=== PATIENT | female | born 1950 | race Caucasian/White ===

== ENCOUNTER 2017-10-01 14:25 | Emergency (ER) | payer OTHER, MEDICARE ==
[~2017-10-01] VITALS: Ht 172.7 cm; Wt 54.9 kg
[~2017-10-01 14:25] MED LIST: ATENOLOL25 M1 PO; AUGMENTIN 875-1 EACH PO; FLONASE ALLERG9.9 ML IN; LISINOPRIL10 M1 PO; PREDNISOLO15 MG/5 M4 PO
[2017-10-01 18:31] LABS: ABSOLUTE BASOPHIL COUNT 0 /CUMM (0.0-0.2); ABSOLUTE EOSINOPHIL COUNT 0 /CUMM (0.0-0.7); ABSOLUTE GRANULOCYTE CT 8.1 /CUMM (1.4-6.5); ABSOLUTE LYMPH COUNT 0.5 /CUMM (1.2-3.4); ABSOLUTE MONOCYTE COUNT 0.1 /CUMM (0.10-0.60); BASOPHIL % 0.1 % (0.0-2.0); EOSINOPHIL % 0.1 % (0-5); MEAN CORPUSCULAR HGB 30.5 PG (27.0-31.0); MEAN CORPUSCULAR HGB CONC 32.9 G/DL (33.0-37.0); MEAN CORPUSCULAR VOLUME 92.7 FL (81.0-99.0); MEAN PLATELET VOLUME 6.8 FL (7.4-10.4); PLATELET COUNT 390 /CUMM (130-400); RBC DISTRIBUTION WIDTH 13.7 % (11.5-14.5); WHITE BLOOD CELL COUNT 8.7 /CUMM (4.8-10.8)
[2017-10-01 18:47] LABS: GRANULOCYTE % 93.2 % (42.2-75.2)
--- NOTE | 2017-10-01 18:55 | CT SCAN REPORT ---
EXAMINATION: CT MAXILLOFACIAL WITH CONTRAST CLINICAL INFORMATION: Sinusitis. Periorbital cellulitis. Evaluate for abscess. COMPARISON: None TECHNIQUE: Multidetector helical imaging was performed in the axial plane with generation of coronal and sagittal reformatted images. The examination was performed after the administration of 95 mL of Optiray 320 intravenous contrast DLP: 810 mGy-cm FINDINGS: There is mild circumferential mucosal thickening lining the dey of the right maxillary antrum. Mild mucosal thickening noted within the ethmoid sinus cavities as well. The remaining paranasal sinuses are fairly well aerated. There is a rightward nasal septal deviation. Mucosal thickening opacifies the right maxillary sinus ostium. No air-fluid levels are seen. No periapical disease is seen in the maxillary dentition. No bony erosive changes are visible. The globes are symmetric. The extraocular muscles and optic nerve sheath complexes are normal. There is no proptosis. The lacrimal glands appear normal. There is infraorbital soft tissue swelling bilaterally, more so on the right side. No drainable fluid collections are seen. The remaining soft tissues of the imaged neck appear normal. The airways maintained. No retropharyngeal fluid collection is seen. There are moderate degenerative changes in the left TMJ. No bulky cervical adenopathy is seen. The imaged portions of the brain demonstrate no acute abnormality. There is extensive multilevel cervical spondylosis with disc space narrowing and endplate osteophyte formation. Facet arthropathy also partially visualized. A mild anterolisthesis is visible at C3-C4. There are no compression fractures. There is a reversal of the normal cervical lordosis. IMPRESSION: Mild mucosal thickening in the paranasal sinuses as described. No air-fluid levels. No drainable fluid collections. No areas of bony erosion. Mild infraorbital soft tissue swelling, right greater than left side. No post septal soft tissue inflammatory process. Moderate cervical spondylosis and reversal of the normal cervical lordosis. Mild anterior subluxation at C3-C4. Significant degenerative changes of the left TMJ.
--- NOTE | 2017-10-01 18:58 | ED GENERAL ADULT ---
History of Present Illness General Chief Complaint: General Adult Stated Complaint: SENT BY [facility] FOR POSSIBLE ADMISSION Source: patient, old records Exam Limitations: no limitations Vital Signs & Intake/Output Vital Signs & Intake/Output Vital Signs Date Time Temp Pulse Resp B/P B/P Pulse O2 O2 Flow FiO2 Mean Ox Delivery Rate 10/01 2008 98.2 72 18 161/79 99 Room Air 10/01 1809 99 Room Air 10/01 1432 98.6 110 18 151/85 98 Room Air ED Intake and Output 10/02 0000 10/01 1200 Intake Total 0 Output Total Balance 0 Intake, Oral 0 Patient 121 lb Weight Weight Reported by Patient Measurement Method Allergies Uncoded Allergies: Allergy Other N Food Allergies N Med Allergies CODEINE Reconcile Medications Amoxicillin/Potassium Clav (Augmentin 875-125 Tablet) 875 MG-125 MG TABLET 1 TAB PO BID sinsuitis Atenolol 25 MG TABLET 1 TAB PO DAILY HEART HEALTH (Reported) Fluticasone Propionate (Flonase Allergy Relief) 50 MCG/ACTUATION SPRAY.SUSP 1 INH IN BID ALLERGIC RHINITIS Lisinopril 10 MG TABLET 1 TAB PO DAILY HEART HEALTH (Reported) Prednisolone 15 MG/5 ML SOLUTION 10 ML PO QDAY SINUS INFLAMATION Prednisone (Deltasone) 20 MG TABLET 2 TAB PO ONCE DAILY RASH Triage Note: 67 YO FEMALE TO TRIAGE C/O RASH AND PUFFY UNDERNEATH BILATERAL EYES. STATES SHE WAS HERE OVER THE WEEKENED AND AND TOLD SHE HAD A SINUS INFECTIONS. STATES "MY DAUGHTER SHOWED DR PEREIRA A PICTURE TODAY AND AHE WANTED ME TO COME IN FOR ADMISSION FOR A SKIN INFECTION" Triage Nurses Notes Reviewed? yes Onset: Abrupt Duration: day(s): (3-4), constant, continues in ED Timing: single episode today Injury Environment: home Severity: moderate, severe Severity Numbers: 5 No Modifying Factors: none LMP (ages 10-50): post menopausal : No Patient currently breastfeeds: No HPI: 67 female past medical history of hypertension presents for reevaluation of facial rash. Patient was seen here 2 days ago with bilateral facial redness swelling and fever. She was started on antibiotics and steroids and instructed to follow-up with his primary care doctor. Patient states that she showed a picture of her face her primary care doctor and she was told to come in for admission for possible skin infection. Patient has been taking antibiotics as directed. She feels like the rash is less swollen but it is still present. There is been no more fevers. She feels much less congested. No chest pain shortness of breath sweats chills. No other rashes no joint pains (Zenon Small) Past History Travel History Traveled to [place] past 21 day No Medical History Any Pertinent Medical History? see below for history EENT: sinusitis Cardiovascular: IRREGULAR HEART BEAT Surgical History Surgical History: non-contributory Psychosocial History What is your primary language Comoran Tobacco Use: Never used Family History Hx Contributory? No (Zenon Small) Review of Systems Review of Systems Constitutional: Reports: no symptoms. EENTM: Reports: no symptoms. Respiratory: Reports: no symptoms. Cardiovascular: Reports: no symptoms. GI: Reports: no symptoms. Genitourinary: Reports: no symptoms. Musculoskeletal: Reports: no symptoms. Skin: Reports: see HPI, lesions, rash. Neurological/Psychological: Reports: no symptoms. Hematologic/Endocrine: Reports: no symptoms. Immunologic/Allergic: Reports: no symptoms. All Other Systems: Reviewed and Negative (Zenon Small) Physical Exam Physical Exam General Appearance: well developed/nourished, no apparent distress, alert, awake Head: atraumatic, normal appearance, erythematous rash remains in the malar distribution slightly worse on the right. No more induration no focal fluctuant areas. Eyes: Bilateral: normal appearance, PERRL, EOMI. Ears, Nose, Throat: normal pharynx, hearing grossly normal, the mucosa of the right naris is erythematous and swollen. No purulent discharge Neck: normal inspection, supple, full range of motion Respiratory: normal breath sounds, chest non-tender, no respiratory distress, lungs clear Cardiovascular: regular rate/rhythm, normal peripheral pulses Peripheral Pulses: 2+ radial (R), 2+ radial (L) Gastrointestinal: soft, non-tender Back: normal inspection, normal range of motion Extremities: normal inspection, normal range of motion, no edema Neurologic/Psych: no motor/sensory deficits, awake, alert, oriented x 3, normal gait, normal mood/affect Skin: intact, normal color, warm/dry Lymphatic: no anterior cervical eddie Core Measures ACS in differential dx? No CVA/TIA Diagnosis: No Sepsis Present: No Sepsis Focused Exam Completed? No (Zenon Small) Progress Differential Diagnoses I considered the following diagnoses in my evaluation of the patient: [ Cellulitis, lupus, sinusitis, allergic reaction, contact dermatitis] Plan of Care: Orders Procedure Date/time Status BLOOD CULTURE 10/01 1737 Active URINALYSIS 10/01 1737 Complete TROPONIN LEVEL 10/01 1737 Complete LACTIC ACID 10/01 1737 Complete COMPREHENSIVE METABOLIC PANEL 10/01 1737 Complete CBC WITHOUT DIFFERENTIAL 10/01 1737 Complete EKG 10/01 1737 Active Laboratory Tests 10/01/172037: Lactic Acid Cancelled 10/01/171809: Anion Gap 14, Estimated GFR > 60, BUN/Creatinine Ratio 18.3, Glucose 119 H, Lactic Acid 1.3, Calcium 9.4, Total Bilirubin 0.6, AST 33, ALT 30, Alkaline Phosphatase 79, Troponin I < 0.01, Total Protein 7.4, Albumin 4.2, Globulin 3.2, Albumin/Globulin Ratio 1.3, CBC w Diff NO MAN DIFF REQ, RBC 4.20, MCV 92.7, MCH 30.5, MCHC 32.9 L, RDW 13.7, MPV 6.8 L, Gran % 93.2 H, Lymphocytes % 5.8 L, Monocytes % 0.8 L, Eosinophils % 0.1, Basophils % 0.1, Absolute Granulocytes 8.1 H, Absolute Lymphocytes 0.5 L, Absolute Monocytes 0.1, Absolute Eosinophils 0, Absolute Basophils 0 10/01/171754: Urine Color YEL, Urine Clarity CLEAR, Urine pH 6.0, Ur Specific Sumner 1.010, Urine Protein NEG, Urine Ketones NEG, Urine Nitrite NEG, Urine Bilirubin NEG, Urine Urobilinogen 0.2, Ur Leukocyte Esterase NEG, Ur Microscopic EXAM NOT REQUIRED, Urine Hemoglobin NEG, Urine Glucose NEG Microbiology 10/01 1899 BLOOD: Blood Culture - RECD 10/01 1809 BLOOD: Blood Culture - RECD Patient seen and evaluated. She reports a persistent malar rash. The rash does appear to be improved compared to previous in terms of it is no longer indurated. She is afebrile. Repeat labs are obtained do not show any elevated white blood cell count negative lactic acid cultures were also obtained. ct scan of the maxillofacial area shows a mild sinusitis without evidence of abscess or septal cellulitis. Compared to previous it seems to be improving but is still present. She's been on antibiotics 2 days. Patient appears quickly while she is afebrile no other signs of infection. This may not be an infectious rash. Case discussed with Dr. Kovacs who will see the patient tomorrow in the office. He recommends a dose of IV ceftriaxone continuing Augmentin. Patient will also be covered with prednisone. Discussed return precautions case discussed with Dr. Saldana he agrees. Diagnostic Imaging: Viewed by Me: CT Scan. Discussed w/RAD: CT Scan. Radiology Impression: PATIENT: TYSHAWN LIANG PRESENT AGE: 67 PATIENT ACCOUNT NO: [id number] : 51 LOCATION: [facility] ORDERING PHYSICIAN: Zenon WALLACE SERVICE DATE: 10/01/17 EXAM TYPE: CAT - CT MAXILLOFACIAL W CONT EXAMINATION: CT MAXILLOFACIAL WITH CONTRAST CLINICAL INFORMATION: Sinusitis. Periorbital cellulitis. Evaluate for abscess. COMPARISON : None TECHNIQUE: Multidetector helical imaging was performed in the axial plane with generation of coronal and sagittal reformatted images. The examination was performed after the administration of 95 mL of Optiray 320 intravenous contrast DLP: 810 mGy-cm FINDINGS: There is mild circumferential mucosal thickening lining the dey of the right maxillary antrum. Mild mucosal thickening noted within the ethmoid sinus cavities as well. The remaining paranasal sinuses are fairly well aerated. There is a rightward nasal septal deviation. Mucosal thickening opacifies the right maxillary sinus ostium. No air-fluid levels are seen. No periapical disease is seen in the maxillary dentition. No bony erosive changes are visible. The globes are symmetric. The extraocular muscles and optic nerve sheath complexes are normal. There is no proptosis. The lacrimal glands appear normal. There is infraorbital soft tissue swelling bilaterally, more so on the right side. No drainable fluid collections are seen. The remaining soft tissues of the imaged neck appear normal. The airways maintained. No retropharyngeal fluid collection is seen. There are moderate degenerative changes in the left TMJ. No bulky cervical adenopathy is seen. The imaged portions of the brain demonstrate no acute abnormality. There is extensive multilevel cervical spondylosis with disc space narrowing and endplate osteophyte formation. Facet arthropathy also partially visualized. A mild anterolisthesis is visible at C3-C4. There are no compression fractures. There is a reversal of the normal cervical lordosis. IMPRESSION: Mild mucosal thickening in the paranasal sinuses as described. No air-fluid levels. No drainable fluid collections. No areas of bony erosion. Mild infraorbital soft tissue swelling, right greater than left side. No post septal soft tissue inflammatory process. Moderate cervical spondylosis and reversal of the normal cervical lordosis. Mild anterior subluxation at C3-C4. Significant degenerative changes of the left TMJ. DICTATED BY: Partha Ojeda MD DATE/TIME DICTATED:09/15 MEDICAL REVIEW SPECIALIST:NATANAEL DATE/TIME TRANSCRIBED:10/01/171844 Initial ED EKG: normal sinus rhythm, PVC (Zenon Small) Departure Departure Disposition: HOME OR SELF CARE Condition: Stable Clinical Impression Primary Impression: Malar rash Referrals: Elizabeth MARTINEZ,Kunal Blount (PCP/Family) Additional Instructions: Continue antibiotics and prednisone as directed for the full course. Follow-up with Dr. Anderson tomorrow. Monitor your symptoms return with any concerns. Departure Forms: Customer Survey General Discharge Information Prescriptions: Current Visit Scripts Prednisone (Deltasone) 2 TAB PO ONCE DAILY #10 TAB (Zenon Small) PA/NURSE ORTHO Co-Sign Statement Statement: ED Attending supervision documentation- [X] I saw and evaluated the patient. I have also reviewed all the pertinent lab results and diagnostic results. I agree with the findings and the plan of care as documented in the PA's/NURSE ORTHO's documentation. Patient presents for evaluation of facial rash at the request of her doctor. Physical examination reveals an erythematous and slightly warm rash over the malar region bilaterally. [] I have reviewed the ED Record and agree with the PA's/NURSE ORTHO's documentation. [] Additions or exceptions (if any) to the PAs/NURSE ORTHO's note and plan are summarized below: [] (Shana MARTINEZ,Jorge Camargo) Critical Care Note Critical Care Note Critical Care Time: non-applicable (Zenon Small)
[2017-10-01] MEDS ORDERED: DELTASONE20 MG PO (19:53)
[2017-10-01 20:09] VITALS: BP 161/79
== END 2017-10-01 20:18 ==
LOC: ERH 14:25
PROVIDERS: Physician Assistant Medical
DX: R21 Rash and other nonspecific skin eruption (principal)
CPT/HCPCS: 81003; 87040; 93005; 93010; J0696